=== PATIENT | female | born 1980 ===

== ENCOUNTER 2019-02-21 03:40 | Emergency (ER) | payer MEDICARE, MEDICAID ==
[2019-02-21 04:33] VITALS: BP 113/80; PULSE 106; RESP 18; TEMP 99.1; O2SAT 100
--- NOTE | 2019-02-21 04:55 | ED PDOC ---
Lower Extremity Pain/Injury Time Seen by Provider: 02/21/19 04:18 Chief Complaint (Nursing): Lower Extremity Problem/Injury Chief Complaint (Provider): foot pain, back pain History Per: Patient History/Exam Limitations: no limitations Onset/Duration Of Symptoms: Days (1) Current Symptoms Are (Timing): Still Present Additional Complaint(s): 38 y/o female brought in by EMS for evaluation of bilateral foot pain and low back pain x 1 day. Patient states she is homeless, has been doing a lot of walking today. Patient also reports sore throat, and feels "feverish". Denies fall, numbness/weakness lower extremities, bowel/bladder incontinence. No medications taken for relief thus far Past Medical History Reviewed: Historical Data, Nursing Documentation, Vital Signs Vital Signs: Last Vital Signs Temp 99.1 F 02/21/19 04:16 Pulse 106 H 02/21/19 04:16 Resp 18 02/21/19 04:16 BP 113/80 02/21/19 04:16 Pulse Ox 100 02/21/19 04:16 Primary Care Provider: Non [facility] Provider, - Medical History PMH: Bipolar Disorder - Surgical History Surgical History: No Surg Hx Other surgeries: ortho surgeries right arm, left foot - Family History Family History: States: No Known Family Hx - Living Arrangements Living Arrangements: With Family - Home Medications Home Medications: Ambulatory Orders Medication Instructions Recorded Acetaminophen [Tylenol] 650 mg PO Q6 PRN #20 capsule 02/21/19 - Allergies Allergies/Adverse Reactions: Allergies Allergy/AdvReac Type Severity Reaction Status Date / Time Penicillins Allergy RASH Verified 02/21/19 08:31 Review of Systems ROS Statement: Except As Marked, All Systems Reviewed And Found Negative Musculoskeletal: Positive for: Back Pain, Foot Pain Physical Exam - Reviewed Nursing Documentation Reviewed: Yes Vital Signs Reviewed: Yes - Physical Exam Appears: Positive for: Well, Non-toxic, No Acute Distress Head Exam: Positive for: ATRAUMATIC, NORMAL INSPECTION, NORMOCEPHALIC Skin: Positive for: Normal Color Eye Exam: Positive for: Normal appearance ENT: Positive for: Normal ENT Inspection Cardiovascular/Chest: Positive for: Regular Rate, Rhythm Respiratory: Positive for: Normal Breath Sounds Gastrointestinal/Abdominal: Positive for: Normal Exam Back: Positive for: Normal Inspection, Muscle Spasm (bilateral lspine paraspinal tenderness). Negative for: L CVA Tenderness, R CVA Tenderness, Vertebral Tend erness, Decreased ROM Extremity: Positive for: Normal ROM Neurological/Psych: Positive for: Awake, Alert, Oriented (x3) - ECG O2 Sat by Pulse Oximetry: 100 - Progress ED Course And Treament: -Tylenol PO -rapid strep Patient educated on findings, discharged with rx Tylenol Advised follow up PMD within 2-3 days Return precautions given Disposition - Clinical Impression Clinical Impression: Sore throat, Bilateral foot pain, Low back pain - Patient ED Disposition Is Patient to be Admitted: No Counseled Patient/Family Regarding: Studies Performed, Diagnosis, Need For Followup, Rx Given - Disposition Referrals: Elizabeth Ocasio [Primary Care Provider] - Disposition: Routine/Home Disposition Time: 06:00 Condition: IMPROVED Prescriptions: Acetaminophen [Tylenol] 650 mg PO Q6 PRN #20 capsule PRN Reason: Pain, Moderate (4-7) Instructions: Low Back Pain in Adults, Sore Throat, Adult (DC)
[2019-02-21] MEDS ORDERED: Potassium Chloride 20 mEq ER Tab PO ONE (16:47)
== END 2019-02-21 06:14 | disposition home or self-care (01) ==
LOC: H.ER 03:40
DX: J02.9 Acute pharyngitis, unspecified (principal); M79.672 Pain in left foot; M79.671 Pain in right foot; Z86.59 Personal history of other mental and behavioral disorders; Z88.0 Allergy status to penicillin; M54.5 Low back pain; Z59.0 Homelessness

== ENCOUNTER 2019-02-21 08:03 | Emergency (ER) | payer MEDICARE, MEDICAID ==
[2019-02-21 08:08] VITALS: BMI 34.9
--- NOTE | 2019-02-21 08:39 | ED PDOC ---
Lower Extremity Pain/Injury Time Seen by Provider: 02/21/19 08:17 Chief Complaint (Nursing): Lower Extremity Problem/Injury Chief Complaint (Provider): I just want to sleep and I have bilateral foot pain History Per: Patient History/Exam Limitations: other (Lethargic) Onset/Duration Of Symptoms: Days (1) Current Symptoms Are (Timing): Still Present Additional Complaint(s): 38 yo female with history of Bipolar disorder and seizure disorder presents to the ED because of feeling excessively tired and with complaint of bilateral foot pain. Minimal history was obtained from patient as she was very sleepy and kept requesting to let her sleep as she is homeless and has not slept in days. Reports bilateral foot pain began early this morning and she thinks its because she has been walking a lot. Patient denies alcohol or illicit drug use but again is a poor historian at this time. Patient is also complaining of bilateral knee pain. Proper ROS was not obtained because patient was unable to answer the questions appropriately as she would answer inappropriately or fall asleep. Only oriented to self, Not to place or time. PMD: unknown - Knee Description Of Injury: Other (Patient reports bilateral foot pain is from walki ng a lot) - Risk Factors DVT Risk Factors: Neg: Decreased Mobility, Decreased Activity, Extremity Immobiliztion, Extremity Fractured, Extremity Paralyzed, Major Surgery Past Medical History Reviewed: Historical Data, Nursing Documentation, Vital Signs Vital Signs: Last Vital Signs Temp 98.4 F 02/21/19 08:05 Pulse 100 H 02/21/19 08:05 Resp 17 02/21/19 08:05 BP 115/67 02/21/19 08:05 Pulse Ox 98 02/21/19 08:05 Primary Care Provider: Doctor,Conversion - Medical History PMH: Bipolar Disorder, Seizures - Surgical History Surgical History: No Surg Hx - Family History Family History: States: Unknown Family Hx - Living Arrangements Living Arrangements: Other (Homeless) - Social History Current smoker - smoking cessation education provided: No Ex-Smoker (has not smoked in the last 12 months): No Alcohol: None Drugs: Denies - Home Medications Home Medications: Ambulatory Orders Medication Instructions Recorded Acetaminophen [Tylenol] 650 mg PO Q6 PRN #20 capsule 02/21/19 - Allergies Allergies/Adverse Reactions: Allergies Allergy/AdvReac Type Severity Reaction Status Date / Time Penicillins Allergy RASH Verified 02/21/19 08:31 Wells Criteria for PE - Wells Criteria for Pulmonary Embolism Clinical Signs and Symptoms of DVT: No P.E is #1 Diagnosis, or Equally Likely: No Heart Rate >100: No (HR is 100, not above) Immobilization at least 3 days;Surgery previous 4 weeks: No Previous, objectively diagnosed PE or DVT: No Hemoptysis: No Malignancy w/treatment within 6 months, or palliative: No Total Score: 0 Review of Systems Review Of Systems: ROS cannot be obtained secondary to pt's inabilty to answer questions. Physical Exam - Reviewed Nursing Documentation Reviewed: Yes Vital Signs Reviewed: Yes - Physical Exam Appears: Positive for: No Acute Distress (Patient is lethargic and requests to let her sleep. ) Skin: Positive for: Normal Color, Warm, Dry Eye Exam: Positive for: Normal appearance, PERRL Cardiovascular/Chest: Positive for: Regular Rate, Rhythm (S1 and S2 appreciated on exam.) Respiratory: Positive for: Normal Breath Sounds. Negative for: Decreased Breath Sounds, Accessory Muscle Use, Crackles, Rales, Rhonchi, Stridor, Wheezing, Respiratory Distress Gastrointestinal/Abdominal: Positive for: Bowel Sounds, Soft. Negative for: Tenderness, Distended, Guarding, Rebound Extremity: Positive for: Swelling (+2 pitting edema. ), Other (Patient refuses a foot and leg exam at this time. Reports she just wants to sleep and to be left alone. ) Neurological/Psych: Positive for: Oriented (Oriented only to herself. Not to place or time. ) - Laboratory Results Result Diagrams: 02/21/19 09:27 02/21/19 09:27 - ECG O2 Sat by Pulse Oximetry: 98 - Progress ED Course And Treament: 38 yo female with history of bipolar disorder and seizures presented to ED with complaint of Bilateral leg pain and tiredness requesting to be left alone to sleep. Given patient's lethargy and inappropriate answers to questions, rule out drug use at this time. Plan: -- Drug U tox -- CBC -- CMP -- Alcohol serum [facility] consulted given history of bipolar disorder and lethargy and homelessness - 1:1 placed at this time - EKG performed - Chest Xray at this time Patient reassessed @ 11:30 am -Urinated in the E.D. room. - Lorazepam 1mg given at this time. Reassessed @ 1540 -- still reports knee pain and states she just wants to rest. Care transferred to Dr. Joaquin- Patient is pending [facility] evaluation and x-ray of bilateral knee. Re-evaluation Time: 10:03 Condition: Unchanged (Patient still stating she does not want a physical exam and just wants to be left alone to sleep) [facility] Ankle Rules - Malleolar zone tenderness? Posterior edge or tip of lateral malleolus: No Posterior edge or tip of medial malleolus: No Inability to bear weight both immediately and in the ED: No - Midfoot zone tenderness? Base of 5th Metatarsal: No Navicular: No Inability to bear weight both immediately and in the ED: No - XRAY INDICATED Is an ankle x-ray indicated based on findings?: No Disposition - Clinical Impression Clinical Impression: Bipolar disorder - Patient ED Disposition Is Patient to be Admitted: Transfer of Care (To Dr. Joaquin) - Disposition Disposition: Transfer of Care (within ED- Dr. Joaquin) Disposition Time: 18:39 Condition: GUARDED Instructions: Bipolar Disorder Forms: [employer] (Indonesian)
[2019-02-21 09:32] LABS: BASO % 0.3 % (0.0-2.0); EOS # 0.1 K/uL (0.0-0.7); EOS % 0.4 % (0.0-4.0); HEMOGLOBIN 13.2 g/dL (12.0-16.0); LYMPH # 1.9 K/uL (1.0-4.3); LYMPH % 14.3 % (20.0-40.0); MEAN CELL VOLUME 89.4 fl (81.0-99.0); MEAN CORPUSCULAR HEMOGLOBIN 30.3 pg (27.0-31.0); MEAN CORPUSCULAR HGB CONC 33.8 g/dL (33.0-37.0); MEAN PLATELET VOLUME 7.4 fl (7.2-11.7); MONO # 1.3 K/uL (0.0-0.8); MONO % 9.9 % (0.0-10.0); NEUT # 9.9 K/uL (1.8-7.0); NEUT % 75.1 % (50.0-75.0); NRBC % 0.1 % (0.0-0.0); RBC 4.37 Mil/uL (3.80-5.20); RED CELL DISTRIBUTION WIDTH 13.1 % (11.5-14.5); WHITE BLOOD COUNT 13.2 K/uL (4.8-10.8)
[2019-02-21 09:42] LABS: ALB/GLOB RATIO 1.5 (1.0-2.1); ALBUMIN 4.4 g/dL (3.5-5.0); ALT/SGPT 31 U/L (9-52); AST/SGOT 27 U/L (14-36); BLOOD UREA NITROGEN 13 mg/dl (7-17); CALCIUM 8.4 mg/dL (8.4-10.2); GFR NON-AFRICAN AMERICAN > 60
[2019-02-21 12:02] LABS: SQUAMOUS EPITHIAL 14 /hpf (0-5); URINE BACTERIA OCC (<OCC); URINE BILIRUBIN NEGATIVE (NEGATIVE); URINE BLOOD NEGATIVE (NEGATIVE); URINE CLARITY CLOUDY (Clear); URINE COLOR AMBER (YELLOW); URINE GLUCOSE (UA) NEG (NEGATIVE); URINE LEUKOCYTE ESTERASE NEG Leu/uL (Negative); URINE PROTEIN 30 mg/dL (NEGATIVE)
[2019-02-21 12:06] LABS: PHENCYCLIDINE, UR NEGATIVE (NEGATIVE)
[2019-02-21 12:08] LABS: BARBITURATES, UR NEGATIVE (NEGATIVE); BENZODIAZEPINES, UR NEGATIVE (NEGATIVE); OPIATES, UR NEGATIVE (NEGATIVE)
[2019-02-21] MEDS ORDERED: Potassium Chloride 20 mEq ER Tab PO STA (15:57)
--- NOTE | 2019-02-21 15:58 | ED PDOC ---
- Laboratory Results Result Diagrams: 02/21/19 09:27 02/21/19 09:27 Lab Results: Total Bilirubin 0.4 mg/dl (0.2-1.3) 02/21/19 09:27 AST 27 U/L (14-36) 02/21/19 09:27 ALT 31 U/L (9-52) 02/21/19 09:27 Alkaline Phosphatase 69 U/L (38-126) 02/21/19 09:27 Total Protein 7.3 G/DL (6.3-8.2) 02/21/19 09: Albumin 4.4 g/dL (3.5-5.0) 02/21/19 09: Globulin 2.9 gm/dL (2.2-3.9) 02/21/19 09: Albumin/Globulin Ratio 1.5 (1.0-2.1) 02/21/19 09:27 Urine Color Silvia (YELLOW) 02/21/19 11:40 Urine Clarity Cloudy (Clear) 02/21/19 11:40 Urine pH 6.0 (5.0-8.0) 02/21/19 11:40 Ur Specific [place] 1.029 (1.003-1.030) 02/21/19 11:40 Urine Protein 30 mg/dL (NEGATIVE) 02/21/19 11:40 Urine Glucose (UA) Neg mg/dL (NEGATIVE) 02/21/19 11:40 Urine Ketones 20 mg/dL (NEGATIVE) 02/21/19 11:40 Urine Blood Negative (NEGATIVE) 02/21/19 11:40 Urine Nitrate Negative (NEGATIVE) 02/21/19 11:40 Urine Bilirubin Negative (NEGATIVE) 02/21/19 11:40 Urine Urobilinogen 2.0 mg/dL (0.2-1.0) H 02/21/19 11:40 Ur Leukocyte Esterase Neg Leslie/uL (Negative) 02/21/19 11:40 Urine RBC (Auto) 5 /hpf (0-3) H 02/21/19 11:40 Urine Microscopic WBC 3 /hpf (0-5) 02/21/19 11:40 Ur Squamous Epith Cells 14 /hpf (0-5) H 02/21/19 11:40 Urine Bacteria Occ (<OCC) H 02/21/19 11:40 Interpretation Of Abn Labs: k 3.5 - ECG ECG: Positive for: Interpreted By Me, Viewed By Me ECG Rhythm: Positive for: Normal QRS, Normal ST Segment, Sinus Rhythm O2 Sat by Pulse Oximetry: 98 Pulse Ox Interpretation: Normal - Radiology X-Ray: Interpreted by Me, Viewed By Me X-Ray Interpretation: No Acute Disease - Progress ED Course And Treament: 1500: Took over care from Dr. Mccarty. Pt. pending [facility] eval and x-rays of knee and chest. Homeless and wants to just rest in the Er. WBC mild elevation. Likely from acute behaviorly issues and leg pain. No infectious etiology identified. 2044: Stable. AAOx3. Medically stable for [facility] [place]. Has been accepted. Pending bed. Disposition - Clinical Impression Clinical Impression: Bipolar disorder, Hypokalemia - POA Present On Arrival: Falls Or Trauma - Disposition Disposition: Transfer of Care (Dr. Epstein) Disposition Time: 20:46 Condition: FAIR
[2019-02-21 16:00] VITALS: RESP 18
--- NOTE | 2019-02-21 23:11 | ED PDOC ---
- Laboratory Results Result Diagrams: 02/21/19 09:27 02/21/19 09:27 Lab Results: Total Bilirubin 0.4 mg/dl (0.2-1.3) 02/21/19 09:27 AST 27 U/L (14-36) 02/21/19 09:27 ALT 31 U/L (9-52) 02/21/19 09:27 Alkaline Phosphatase 69 U/L (38-126) 02/21/19 09:27 Total Protein 7.3 G/DL (6.3-8.2) 02/21/19 09: Albumin 4.4 g/dL (3.5-5.0) 02/21/19 09: Globulin 2.9 gm/dL (2.2-3.9) 02/21/19 09: Albumin/Globulin Ratio 1.5 (1.0-2.1) 02/21/19 09:27 Urine Color Silvia (YELLOW) 02/21/19 11:40 Urine Clarity Cloudy (Clear) 02/21/19 11:40 Urine pH 6.0 (5.0-8.0) 02/21/19 11:40 Ur Specific [place] 1.029 (1.003-1.030) 02/21/19 11:40 Urine Protein 30 mg/dL (NEGATIVE) 02/21/19 11:40 Urine Glucose (UA) Neg mg/dL (NEGATIVE) 02/21/19 11:40 Urine Ketones 20 mg/dL (NEGATIVE) 02/21/19 11:40 Urine Blood Negative (NEGATIVE) 02/21/19 11:40 Urine Nitrate Negative (NEGATIVE) 02/21/19 11:40 Urine Bilirubin Negative (NEGATIVE) 02/21/19 11:40 Urine Urobilinogen 2.0 mg/dL (0.2-1.0) H 02/21/19 11:40 Ur Leukocyte Esterase Neg Leslie/uL (Negative) 02/21/19 11:40 Urine RBC (Auto) 5 /hpf (0-3) H 02/21/19 11:40 Urine Microscopic WBC 3 /hpf (0-5) 02/21/19 11:40 Ur Squamous Epith Cells 14 /hpf (0-5) H 02/21/19 11:40 Urine Bacteria Occ (<OCC) H 02/21/19 11:40 - ECG O2 Sat by Pulse Oximetry: 98 Medical Decision Making Medical Decision Makin Patient care endorsed from Dr. Joaquin to this provider pending [facility] bed availability. At this time, patient resting comfortably in NAD. 0300 Patient resting comfortably in NAD with no complaints at this time. 0700 Patient remains comfortable with stable vitals in bed. Signed out to Dr. Mccarty pending [facility] bed availability. Scribe Attestation: Documented by Neli Thompson, acting as a scribe for Twin Epstein MD. Provider Scribe Attestation: All medical record entries made by the Scribe were at my direction and personally dictated by me. I have reviewed the chart and agree that the record accurately reflects my personal performance of the history, physical exam, medical decision making, and the department course for this patient. I have also personally directed, reviewed, and agree with the discharge instructions and disposition. Disposition - Clinical Impression Clinical Impression: Bipolar disorder, Hypokalemia - POA Present On Arrival: None - Disposition Disposition: Transfer of Care Disposition Time: 07:00 Condition: FAIR Forms: [employer] (Greek)
--- NOTE | 2019-02-22 09:36 | CP.PCM.CON ---
History of Present Illness - History of Present Illness History of Present Illness: Psychiatry consult note CC: "I'm fine" HPI: 38 yo female w/ h/o bipolar disorder and seizure disorder, presented to the ER acutely bizarre, confused, w/ racing thoughts, poor sleep and appetite in the context of poor compliance with medications. Patient is evasive on interview. Denies acute depression/anxiety/AH/VH/paranoia to contract writer, but patient continues to be bizarre and possibly internally preoccupied. Patient was screened by [facility] and accept for involuntary psychiatric admission. Impression: 38 yo female w/ h/o bipolar disorder, presents acute decompensated in the context of poor compliance with treatment and medications. -Transfer for involuntary psychiatric admission -PC completed by contract writer Past Patient History - Past Social History Alcohol: None Drugs: Denies - NEUROLOGICAL Hx Seizures: Yes - PSYCHIATRIC Hx Bipolar Disorder: Yes - SURGICAL HISTORY Hx Surgeries: No - ANESTHESIA Hx Anesthesia: No Meds Allergies/Adverse Reactions: Allergies Allergy/AdvReac Type Severity Reaction Status Date / Time Penicillins Allergy RASH Verified 02/21/19 08:31 Results - Vital Signs Recent Vital Signs: Last Vital Signs Temp 99.3 F 02/22/19 06:48 Pulse 98 H 02/22/19 06:48 Resp 18 02/22/19 06:48 BP 129/74 02/22/19 06:48 Pulse Ox 99 02/22/19 06:48 - Labs Result Diagrams: 02/21/19 09:27 02/21/19 09:27 Labs: Laboratory Results - last 24 hr 02/21/19 02/21/19 02/21/19 09:27 11:40 11:40 Sodium 138 Potassium 3.5 L Chloride 102 Carbon Dioxide 24 Anion Gap 16 BUN 13 Creatinine 0.4 L Est GFR ( Amer) > 60 Est GFR (Non-Af Amer) > 60 Random Glucose 108 H Calcium 8.4 Total Bilirubin 0.4 AST 27 ALT 31 Alkaline Phosphatase 69 Total Protein 7.3 Albumin 4.4 Globulin 2.9 Albumin/Globulin Ratio 1.5 Urine Color Silvia Urine Clarity Cloudy Urine pH 6.0 Ur Specific [place] 1.029 Urine Protein 30 Urine Glucose (UA) Neg Urine Ketones 20 Urine Blood Negative Urine Nitrate Negative Urine Bilirubin Negative Urine Urobilinogen 2.0 H Ur Leukocyte Esterase Neg Urine RBC (Auto) 5 H Urine Microscopic WBC 3 Ur Squamous Epith Cells 14 H Urine Bacteria Occ H Urine Opiates Screen Negative Urine Methadone Screen Negative Ur Barbiturates Screen Negative Ur Phencyclidine Scrn Negative Ur Amphetamines Screen Negative U Benzodiazepines Scrn Negative U Oth Cocaine Metabols Negative U Cannabinoids Screen Negative Alcohol, Quantitative < 10
--- NOTE | 2019-02-22 10:46 | RAD ---
Date of service: 02/21/2019 HISTORY: bipolar COMPARISON: No prior. FINDINGS: LUNGS: The lungs are well inflated and clear. PLEURA: No pleural effusions or pneumothorax. CARDIOVASCULAR: The heart is normal in size. No aortic atherosclerotic calcifications present. OSSEOUS STRUCTURES: Status post open reduction and internal fixation of proximal humeral fracture with plate and screws. Otherwise the visualized bones are within normal limits for the patient's age. VISUALIZED UPPER ABDOMEN: Normal. OTHER FINDINGS: None. IMPRESSION: No active pulmonary disease.
--- NOTE | 2019-02-22 11:35 | CARD ---
APPROVED REPORT Date of service: 02/21/2019 EKG Measurement Heart [id number] <Conclusion> Normal sinus rhythm Normal ECG
--- NOTE | 2019-02-22 14:23 | RAD ---
Date of service: 02/21/2019 PROCEDURE: Bilateral Knee Radiographs. HISTORY: Bilateral Knee pain COMPARISON: None. TECHNIQUE: 4 views obtained. FINDINGS: BONES: Bone alignment and mineralization are normal. There is no acute displaced fracture or bone destruction. JOINTS: There is moderate tricompartmental degenerative osteoarthrosis with reduced joint spaces, marginal osteophytes and tibial spiking, worse in the medial compartment, worse on the right. SOFT TISSUES: Right Knee: Normal. Left Knee: Normal. JOINT EFFUSION: Right Knee: None. Left Knee: None. OTHER FINDINGS: None. IMPRESSION: No acute fracture or dislocation. Moderate tricompartmental degenerative osteoarthrosis, worse in the medial compartments, worse on the right.
--- NOTE | 2019-02-22 14:31 | ED PDOC ---
- Laboratory Results Result Diagrams: 02/21/19 09:27 02/21/19 09:27 Lab Results: Total Bilirubin 0.4 mg/dl (0.2-1.3) 02/21/19 09:27 AST 27 U/L (14-36) 02/21/19 09:27 ALT 31 U/L (9-52) 02/21/19 09:27 Alkaline Phosphatase 69 U/L (38-126) 02/21/19 09:27 Total Protein 7.3 G/DL (6.3-8.2) 02/21/19 09: Albumin 4.4 g/dL (3.5-5.0) 02/21/19 09: Globulin 2.9 gm/dL (2.2-3.9) 02/21/19 09: Albumin/Globulin Ratio 1.5 (1.0-2.1) 02/21/19 09:27 Urine Color Silvia (YELLOW) 02/21/19 11:40 Urine Clarity Cloudy (Clear) 02/21/19 11:40 Urine pH 6.0 (5.0-8.0) 02/21/19 11:40 Ur Specific [place] 1.029 (1.003-1.030) 02/21/19 11:40 Urine Protein 30 mg/dL (NEGATIVE) 02/21/19 11:40 Urine Glucose (UA) Neg mg/dL (NEGATIVE) 02/21/19 11:40 Urine Ketones 20 mg/dL (NEGATIVE) 02/21/19 11:40 Urine Blood Negative (NEGATIVE) 02/21/19 11:40 Urine Nitrate Negative (NEGATIVE) 02/21/19 11:40 Urine Bilirubin Negative (NEGATIVE) 02/21/19 11:40 Urine Urobilinogen 2.0 mg/dL (0.2-1.0) H 02/21/19 11:40 Ur Leukocyte Esterase Neg Leslie/uL (Negative) 02/21/19 11:40 Urine RBC (Auto) 5 /hpf (0-3) H 02/21/19 11:40 Urine Microscopic WBC 3 /hpf (0-5) 02/21/19 11:40 Ur Squamous Epith Cells 14 /hpf (0-5) H 02/21/19 11:40 Urine Bacteria Occ (<OCC) H 02/21/19 11:40 - ECG O2 Sat by Pulse Oximetry: 97 - Progress Re-evaluation Time: 14:30 Condition: Re-examined (Pt becoming agitated, confronting staff. Denies SI/HI) Disposition - Clinical Impression Clinical Impression: Bipolar disorder, Hypokalemia - POA Present On Arrival: None - Disposition Disposition: Transfer of Care Disposition Time: 14:58 Condition: FAIR Forms: [employer] (Mohawk) Patient Signed Over To: Bree Soriano (Pending transfer)
--- NOTE | 2019-02-22 15:15 | ED PDOC ---
- Laboratory Results Result Diagrams: 02/21/19 09:27 02/21/19 09:27 Lab Results: Total Bilirubin 0.4 mg/dl (0.2-1.3) 02/21/19 09:27 AST 27 U/L (14-36) 02/21/19 09:27 ALT 31 U/L (9-52) 02/21/19 09:27 Alkaline Phosphatase 69 U/L (38-126) 02/21/19 09:27 Total Protein 7.3 G/DL (6.3-8.2) 02/21/19 09: Albumin 4.4 g/dL (3.5-5.0) 02/21/19 09: Globulin 2.9 gm/dL (2.2-3.9) 02/21/19 09: Albumin/Globulin Ratio 1.5 (1.0-2.1) 02/21/19 09:27 Urine Color Silvia (YELLOW) 02/21/19 11:40 Urine Clarity Cloudy (Clear) 02/21/19 11:40 Urine pH 6.0 (5.0-8.0) 02/21/19 11:40 Ur Specific [place] 1.029 (1.003-1.030) 02/21/19 11:40 Urine Protein 30 mg/dL (NEGATIVE) 02/21/19 11:40 Urine Glucose (UA) Neg mg/dL (NEGATIVE) 02/21/19 11:40 Urine Ketones 20 mg/dL (NEGATIVE) 02/21/19 11:40 Urine Blood Negative (NEGATIVE) 02/21/19 11:40 Urine Nitrate Negative (NEGATIVE) 02/21/19 11:40 Urine Bilirubin Negative (NEGATIVE) 02/21/19 11:40 Urine Urobilinogen 2.0 mg/dL (0.2-1.0) H 02/21/19 11:40 Ur Leukocyte Esterase Neg Leslie/uL (Negative) 02/21/19 11:40 Urine RBC (Auto) 5 /hpf (0-3) H 02/21/19 11:40 Urine Microscopic WBC 3 /hpf (0-5) 02/21/19 11:40 Ur Squamous Epith Cells 14 /hpf (0-5) H 02/21/19 11:40 Urine Bacteria Occ (<OCC) H 02/21/19 11:40 - ECG O2 Sat by Pulse Oximetry: 97 (RA) Pulse Ox Interpretation: Normal Medical Decision Making Medical Decision Makin Bedside rounds performed, patient resting in room and is in no acute distress. Patient signed out to me by Dr. Mccarty pending [facility] bed availability and transfer 1513 Bed available at [facility], transfer initiated. Scribe Attestation: Documented by Keysha He acting as a scribe for Bree Soriano MD. Provider Scribe Attestation: All medical record entries made by the Scribe were at my direction and personally dictated by me. I have reviewed the chart and agree that the record accurately reflects my personal performance of the history, physical exam, medical decision making, and the department course for this patient. I have also personally directed, reviewed, and agree with the discharge instructions and disposition. Disposition - Clinical Impression Clinical Impression: Bipolar disorder, Hypokalemia - POA Present On Arrival: None - Disposition Disposition: Other Institution Disposition Time: 15:10 Condition: STABLE Forms: [employer] (Indonesian)
[2019-02-22 15:18] VITALS: BP 128/64; PULSE 91; TEMP 99.2
[2019-02-23 20:36] VITALS: O2SAT 97
== END 2019-02-22 15:35 | disposition short-term general hospital (02) ==
LOC: H.ER 08:03
DX: F31.9 Bipolar disorder, unspecified (principal); Z87.891 Personal history of nicotine dependence; Z88.0 Allergy status to penicillin; Z59.0 Homelessness
CPT/HCPCS: 71045; 73560; 80053; 81003; 81025; 85025; 93005; 96372; 99285; G0480; J2060